=== PATIENT | male | born 1985 | race Caucasian/White ===

== ENCOUNTER 2017-10-29 02:11 | Emergency (ER) | payer OTHER ==
[~2017-10-29] VITALS: Ht 193 cm; Wt 99.0 kg
[~2017-10-29 02:11] MED LIST: SYNT175T PO
[2017-10-29 02:16] VITALS: BP 144/76; PULSE 96; RESP 20; TEMP 98.6; O2SAT 100
[2017-10-29] MEDS ORDERED: SYNT175T PO (02:16)
[2017-10-29 02:22] VITALS: PULSE 96; RESP 20; TEMP 98; O2SAT 99
[2017-10-29] MEDS ORDERED: TETANUS/DIPHTHERIA TOXOID ADULT 0.5 ML VIAL IM ONE (02:30)
--- NOTE | 2017-10-29 02:31 | PD ---
HPI Chief Complaint: Exposure to Blood/Body Fluids Time Seen by Provider: 02:26 Travel History International Travel<30 days: No Contact w/Intl Traveler<30days: No Traveled to known affect area: No History of Present Illness HPI This is a 32-year-old male who presents for evaluation of needle stick on the left fifth finger. 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 He was drawing blood on a patient in the [facility] when he was attempting to run A needle and the safety catch was faulty and the needle stuck him in his left fifth finger. He was wearing gloves. It did break his skin and he was bleeding. Unknown HIV/hepatitis status of the source patient. The charge nurse of the [facility] will be notified so that source patient testing can be performed. The patient's last tetanus vaccination is unknown. No other complaints. PFSH Past Medical History Anxiety: Yes Depression: Yes Heart Rhythm Problems: Yes (TACHYCARDIA) Diminished Hearing: No Immunizations Current: Yes Thyroid Disease: Yes (HYPERTHYROID RECENTLY DIAG. graves) Tetanus Vaccination: Unknown Past Surgical History Endocrine Surgery: Yes (radiation ablaTion thyroid) Social History Alcohol Use: Yes (RARELY) Tobacco Use: No Substance Use: No Allergies-Medications (Allergen,Severity, Reaction): Coded Allergies: sodium hypochlorite solution (Unverified Allergy, Mild, rash, 10/29/17) Reported Meds & Prescriptions Reported Meds & Active Scripts Active Reported Synthroid (Levothyroxine Sodium) 175 Mcg Tab 175 Mcg PO DAILY Review of Systems Skin: Positive Other (positive for puncture wound, blood exposure) Physical Exam Narrative GENERAL: Well-developed well-nourished male in no acute distress SKIN: Warm and dry. HEAD: Atraumatic. Normocephalic. EYES: Pupils equal and round. No scleral icterus. No injection or drainage. ENT: No nasal bleeding or discharge. Mucous membranes pink and moist. NECK: Trachea midline. No JVD. CARDIOVASCULAR: Regular rate and rhythm. No murmur appreciated. RESPIRATORY: No accessory muscle use. Clear to auscultation. Breath sounds equal bilaterally. Data Data Last Documented VS Vital Signs Date Time Temp Pulse Resp B/P (MAP) Pulse Ox O2 Delivery O2 Flow Rate FiO2 10/29/17 02:22 98.0 96 20 99 Room Air 10/29/17 02:16 144/76 (98) Orders Orders Tetanus/Diphtheria Tox Adult (Tetanus/Di (10/29/17 02:30) Ed Discharge Order (10/29/17 03:13) MDM Medical Decision Making Medical Screen Exam Complete: Yes Emergency Medical Condition: Yes Medical Record Reviewed: Yes Differential Diagnosis Puncture wound, needle stick, hepatitis exposure, HIV exposure Narrative Course The [facility] nurse will be notified so that source patient testing can be performed. Post exposure protocol followed here in the ED. The patient will follow-up with [facility]. Tetanus status updated. Diagnosis Primary Impression: Needlestick wound of finger Referrals: [facility] Additional Instructions: Follow-up with [facility], call them on Tuesday to set up an appointment. Return for any emergent medical conditions. Med/Other Pt SpecificInfo: No Change to Meds Disposition: 01 DISCHARGE HOME Condition: Stable Aguilar Peters Oct 29, 2017 02:31
== END 2017-10-29 03:53 | disposition home or self-care (01) ==
LOC: NEPD 02:11
DX: S61.237A Puncture wound without foreign body of left little finger without damage to nail, initial encounter (principal); W46.1XXA Contact with contaminated hypodermic needle, initial encounter; Y93.F9 Activity, other caregiving; Y92.238 Other place in hospital as the place of occurrence of the external cause; Y99.0 Civilian activity done for income or pay; Z23 Encounter for immunization
CPT/HCPCS: 90471; 90714